=== PATIENT | female | born 1965 | race Two or more races ===

== ENCOUNTER 2016-07-18 19:24 | Emergency (ER) | payer MEDICAID ==
[~2016-07-18] VITALS: Ht 157.5 cm; Wt 71.7 kg
[2016-07-18 19:43] VITALS: BP 141/91
[2016-07-18 20:06] LABS: APPEARANCE,URINE SLIGHTLY CLOUDY; KETONES,URINE NEGATIVE (NEGATIVE); LEUKOCYTE ESTERASE ,URINE 3+ (NEGATIVE); NITRITE,URINE NEGATIVE (NEGATIVE); PH,URINE 6 (4.5-8.0); PROTEIN,URINE 2+ (NEGATIVE); UROBILINOGEN,URINE NORMAL MG/DL (0.0-1.0)
[2016-07-18 20:15] LABS: BACTERIA,URINE MODERATE /HPF; SQUAMOUS EPITHELIAL CELL,UR FEW /LPF (NONE/OCC); WBC,URINE TNTC /HPF (0 - 2)
[2016-07-18] MEDS ORDERED: BACTRIM DS TAB1 EAC1 ORAL (20:23)
[2016-07-18] MEDS ORDERED: Bactrim DS (160mg/800mg) tab ORAL ONE (20:30)
[2016-07-18 20:37] VITALS: BP 141/91
--- NOTE | 2016-07-18 21:11 | Emergency Room Report ---
History of Present Illness General Chief Complaint: Pain Source: Patient Present Illness HPI The patient is a 51-year-old female presenting with lower abdominal pain, dysuria, and fever which began 2 days prior. Abdominal pain as described as an 8/10 dull ache it does not radiate from the area. The patient does admit to increased urinary frequency. The patient denies any vaginal discharge and denies flank pain, hematuria, night sweats, rash, cough, diarrhea, constipation , nausea, vomiting Allergies: Coded Allergies: No Known Allergies (Unverified , 07/18/16) Patient History Past Medical History: see triage record Pertinent Family History: none Last Menstrual Period: 07/14/16 Now: No Reviewed Nursing Documentation: PMH: Agreed, PSxH: Agreed Nursing Documentation-PMH Past Medical History: No Stated History Review of Systems All Other Systems: negative except mentioned in HPI Physical Exam Vital Signs Date Time Temp Pulse Resp B/P Pulse Ox O2 Delivery O2 Flow Rate FiO2 07/18/16 19:34 97.7 74 15 141/91 96 Room Air Sp02 EP Interpretation: reviewed, normal General Appearance: no apparent distress, alert, GCS 15, non-toxic Head: normocephalic, atraumatic Eyes: bilateral eye PERRL, bilateral eye normal inspection Gastrointestinal: normal inspection, normal bowel sounds, soft, no mass, non- distended, no guarding, no rebound, tenderness - suprapubic Genitourinary: normal inspection, no CVA tenderness Musculoskeletal: back normal, gait/station normal, normal range of motion, non- tender Neurologic: alert, oriented x3, responsive, motor strength/tone normal, sensory intact, speech normal Psychiatric: judgement/insight normal, memory normal, mood/affect normal, no suicidal/homicidal ideation Skin: normal color, no rash, warm/dry, well hydrated Lymphatic: no adenopathy Medical Decision Making PA Attestation Dr. Bill is my supervising physician. Patient management was discussed with my supervising physician Diagnostic Impression: Primary Impression: Urinary tract infection ER Course The patient is a 51-year-old female presenting with lower abdominal pain, dysuria, and fever which began 2 days prior. Differential diagnosis considered but not limited to: UTI, vaginitis, pyelonephritis, Physical exam: Afebrile. No apparent distress Abdomen is soft. There is tenderness to palpation over suprapubic region only. Normal bowel sounds. Nondistended. No CVA tenderness Labs: UA shows WBC TNTC and many bacteria. No nitrites. neg preg. The patient is given Tylenol for pain Patient will be treated for urinary tract infection with Bactrim. ER precautions are given and the patient will follow up with primary care doctor Laboratory Tests Test 07/18/16 19:46 Urine Color Yellow Urine Appearance Slightly cloudy Urine pH 6 (4.5-8.0) Urine Specific [place] 1.005 (1.005-1.035) Urine Protein 2+ (NEGATIVE) H Urine Glucose (UA) Negative (NEGATIVE) Urine Ketones Negative (NEGATIVE) Urine Occult Blood 5+ (NEGATIVE) H Urine Nitrite Negative (NEGATIVE) Urine Bilirubin Negative (NEGATIVE) Urine Urobilinogen Normal MG/DL (0.0-1.0) Urine Leukocyte Esterase 3+ (NEGATIVE) H Urine RBC 10-15 /HPF (0 - 2) H Urine WBC Tntc /HPF (0 - 2) H Urine Squamous Epithelial Cells Few /LPF (NONE/OCC) Urine Bacteria Moderate /HPF (NONE) H Urine HCG, Qualitative Negative Lab Results Impression UA shows WBC TNTC and many bacteria. No nitrites. Last Vital Signs Date Time Temp Pulse Resp B/P Pulse Ox O2 Delivery O2 Flow Rate FiO2 07/18/16 20:37 97.7 79 15 141/91 96 Room Air Status: improved Disposition: HOME, SELF-CARE Condition: Improved Scripts Trimethoprim/Sulfamethoxazole 160/800* (BACTRIM DS TABLET*) 1 Each Tablet 1 TAB ORAL TWICE A DAY, #14 TAB Prov: MADHU TALAVERA 07/18/16 Patient Instructions: Urinary Tract Infection Additional Instructions: I discussed my findings with the patient. All questions and concerns have been answered. Treatment and medication compliance have been addressed. I advised the patient that they need to follow up with PMD in 3-5 days. Return to ED if symptoms worsen, new symptoms arise, or if needed for any reason. Patient verbalized understanding of discharge instructions. MADHU TALAVERA Jul 18, 2016 21:10
== END 2016-07-18 20:37 | disposition home or self-care (01) ==
LOC: EMR 20:20
DX: N39.0 Urinary tract infection, site not specified (principal); R10.30 Lower abdominal pain, unspecified; R30.0 Dysuria; R50.9 Fever, unspecified
CPT/HCPCS: 81003; 81025; 87086; 87181; 99283

== ENCOUNTER 2016-07-22 11:56 | Emergency (ER) | payer MEDICAID ==
[~2016-07-22] VITALS: Ht 157.5 cm; Wt 71.7 kg
[~2016-07-22 11:56] MED LIST: BACTRIM DS TAB1 EAC1 ORAL
[2016-07-22] MEDS ORDERED: Ciprofloxacin 500mg tab ORAL ONE (12:45)
[2016-07-22] MEDS ORDERED: CIPROFLOXACIN500 M2 ORAL (13:08)
[2016-07-22 13:41] LABS: APPEARANCE,URINE CLEAR; KETONES,URINE NEGATIVE (NEGATIVE); LEUKOCYTE ESTERASE ,URINE 2+ (NEGATIVE); NITRITE,URINE NEGATIVE (NEGATIVE); PH,URINE 6 (4.5-8.0); PROTEIN,URINE 1+ (NEGATIVE); UROBILINOGEN,URINE NORMAL MG/DL (0.0-1.0)
--- NOTE | 2016-07-22 13:53 | Emergency Room Report ---
History of Present Illness General Chief Complaint: Female Urogenital Problems Source: Patient Present Illness HPI The patient is a 51-year-old female presenting with lower abdominal pain, flank pain, and dysuria which began one week prior. Patient was seen in this emergency department and given a prescription for Bactrim. Microbiology reports shows that the bacteria and is resistant to this antibiotic. The patient states that she has been experiencing lower normal and bilateral flank pain for the past 2 days. The pain is described as a 10/10 dull ache to the mid lower abdomen and radiates to the right and left lower back. The patient admits to dysuria and increased urinary frequency. Patient denies hematuria or vaginal discharge. The patient also denies nausea, vomiting, fever, chills Allergies: Coded Allergies: No Known Allergies (Unverified , 07/18/16) Patient History Past Medical History: see triage record Pertinent Family History: none Last Menstrual Period: last week Now: No Reviewed Nursing Documentation: PMH: Agreed, PSxH: Agreed Nursing Documentation-PMH Past Medical History: No History, Except For Review of Systems All Other Systems: negative except mentioned in HPI Physical Exam Vital Signs Date Time Temp Pulse Resp B/P Pulse Ox O2 Delivery O2 Flow Rate FiO2 07/22/16 12:07 101.8 106 20 125/72 98 Room Air General Appearance: no apparent distress, alert, GCS 15, non-toxic Head: normocephalic, atraumatic Eyes: bilateral eye PERRL, bilateral eye normal inspection Respiratory: chest non-tender, lungs clear, normal breath sounds, speaking full sentences Cardiovascular #1: regular rate, rhythm, no edema Gastrointestinal: normal bowel sounds, soft, non-distended, no guarding, no rebound, tenderness - suprapubic Genitourinary: normal inspection, CVA tenderness (R), CVA tenderness (L) Musculoskeletal: back normal, gait/station normal, normal range of motion, non- tender Neurologic: alert, oriented x3, responsive, motor strength/tone normal, sensory intact, speech normal Psychiatric: judgement/insight normal, memory normal, mood/affect normal, no suicidal/homicidal ideation Skin: normal color, no rash, warm/dry, well hydrated Lymphatic: no adenopathy Medical Decision Making PA Attestation Dr. Pool is my supervising physician. Patient management was discussed with my supervising physician Diagnostic Impression: Primary Impression: Urinary tract infection ER Course The patient is a 51-year-old female presenting with lower abdominal pain, flank pain, and dysuria which began one week prior Differential diagnosis considered: Urinary tract infection, bacterial vaginosis , PID, pyelonephritis PE: The patient is febrile. No apparent distress. Abdomen is soft. Tenderness to palpation over suprapubic region. Normal bowel sounds. There is bilateral CVA tenderness Skin is warm and dry. Otherwise exam is unremarkable The patient was given Tylenol and ciprofloxacin in the emergency department. The patient had a urinalysis done 4 days prior with microbiology showing Escherichia coli that is resistant to Bactrim. His susceptible to ciprofloxacin the patient will be placed on this antibiotic and will follow up with primary care physician. ER precautions are given Last Vital Signs Date Time Temp Pulse Resp B/P Pulse Ox O2 Delivery O2 Flow Rate FiO2 07/22/16 12:07 101.8 106 20 125/72 98 Room Air Status: improved Disposition: HOME, SELF-CARE Condition: Improved Scripts Ciprofloxacin Hcl* (CIPROFLOXACIN HCL*) 500 Mg Tablet 500 MG ORAL EVERY 12 HOURS, #20 TAB 0 Refills Prov: MADHU TALAVERA 07/22/16 Referrals: NOT CHOSEN IPA/MD,REFERRING Patient Instructions: Urinary Tract Infection Additional Instructions: I discussed my findings with the patient. All questions and concerns have been answered. Treatment and medication compliance have been addressed. I advised the patient that they need to follow up with PMD in 3-5 days. Return to ED if symptoms worsen, new symptoms arise, or if needed for any reason. Patient verbalized understanding of discharge instructions. MADHU TALAVERA Jul 22, 2016 13:52
[2016-07-22 13:54] LABS: BACTERIA,URINE FEW /HPF; SQUAMOUS EPITHELIAL CELL,UR FEW /LPF (NONE/OCC)
[2016-07-22 15:25] VITALS: BP 121/65
[2016-07-22 15:30] VITALS: BP 121/65
== END 2016-07-22 15:30 | disposition home or self-care (01) ==
LOC: EMR 12:35
DX: N39.0 Urinary tract infection, site not specified (principal)
CPT/HCPCS: 81003; 87086; 87181; 99283

== ENCOUNTER 2017-09-21 16:54 | Emergency (ER) | payer MEDICAID, OTHER ==
[~2017-09-21] VITALS: Ht 157.5 cm; Wt 73.5 kg
[~2017-09-21 16:54] MED LIST changes: +CIPROFLOXACIN500 M2 ORAL
[2017-09-21] MEDS ORDERED: NKM (17:17)
[2017-09-21 17:21] VITALS: BP 141/76
[2017-09-21] MEDS ORDERED: Meclizine 25mg tab ORAL ONE (17:30)
[2017-09-21 18:01] LABS: APPEARANCE,URINE CLEAR; BILIRUBIN, URINE NEGATIVE (NEGATIVE); COLOR,URINE PALE YELLOW; GLUCOSE, URINE (UA) NEGATIVE (NEGATIVE); KETONES,URINE NEGATIVE (NEGATIVE); LEUKOCYTE ESTERASE ,URINE NEGATIVE (NEGATIVE); NITRITE,URINE NEGATIVE (NEGATIVE); PH,URINE 7 (4.5-8.0); PROTEIN,URINE NEGATIVE (NEGATIVE); UROBILINOGEN,URINE NORMAL MG/DL (0.0-1.0)
--- NOTE | 2017-09-21 18:04 | Emergency Room Report ---
History of Present Illness General Chief Complaint: Dizziness Source: Patient Present Illness HPI Patient is a 52-year-old female in after increased dizziness. The patient reports having increased spinning sensation. The patient woke up this morning with acute onset of symptoms. She reports having prior history of hypertension. She denies taking any medications.The patient denies any chest pain or shortness of breath.The patient was noted to have increased sensation of movement. She was having moderate headache. She denies any fever. She denies any vomiting or diarrhea.The patient reported he had not been taking any medications. Allergies: Coded Allergies: No Known Allergies (Unverified , 07/18/16) Patient History Past Medical History: see triage record Last Menstrual Period: 09/16/17 Reviewed Nursing Documentation: PMH: Agreed; PSxH: Agreed Nursing Documentation-PMH Hx Hypertension: Yes Review of Systems All Other Systems: negative except mentioned in HPI Physical Exam Vital Signs Date Time Temp Pulse Resp B/P (MAP) Pulse Ox O2 Delivery O2 Flow Rate FiO2 09/21/17 17:11 98.1 49 17 149/84 96 Room Air 98.1 General Appearance: well appearing, no apparent distress, alert, GCS 15, non- toxic Head: normocephalic, atraumatic ENT: hearing grossly normal, normal voice Neck: full range of motion, supple Respiratory: no respiratory distress, speaking full sentences Cardiovascular #1: regular rate, rhythm Gastrointestinal: normal inspection, normal bowel sounds, non tender, soft, no mass Musculoskeletal: no calf tenderness Neurologic: normal inspection, alert, oriented x3, responsive, 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 Differential diagnosis included was not limited to CVA, vertebrobasilar insufficiency, myocardial infarction, benign positional vertigo, labyrinthitis, aspirin overdose among others. The patient was noted to have abnormal neurologic exam initially. Patient was given meclizine by mouth. She was subsequently noted to have some improvement. CT imaging showed no evidence of acute hemorrhage or CVA. Patient was given aspirin by mouth. I EKG interpreted by me showed sinus bradycardia with a rate of 49 with prolonged QT interval there is some nonspecific T wave changes there were no evidence of acute ST changes.. Patient was noted to have inverted T- wave in lead 3 which is a normal variant.Patient was discussed with physician at [facility] for transfer Labs Test 09/21/17 17:45 White Blood Count 5.8 K/UL (4.8-10.8) Red Blood Count 4.00 M/UL (4.20-5.40) Hemoglobin 12.5 G/DL (12.0-16.0) Hematocrit 35.2 % (37.0-47.0) Mean Corpuscular Volume 88 FL (80-99) Mean Corpuscular Hemoglobin 31.2 PG (27.0-31.0) Mean Corpuscular Hemoglobin Concent 35.5 G/DL (32.0-36.0) Red Cell Distribution Width 11.4 % (11.6-14.8) Platelet Count 149 K/UL (150-450) Mean Platelet Volume 10.2 FL (6.5-10.1) Neutrophils (%) (Auto) 52.1 % (45.0-75.0) Lymphocytes (%) (Auto) 38.7 % (20.0-45.0) Monocytes (%) (Auto) 7.1 % (1.0-10.0) Eosinophils (%) (Auto) 1.2 % (0.0-3.0) Basophils (%) (Auto) 0.8 % (0.0-2.0) Prothrombin Time 10.1 SEC (9.30-11.50) Prothromb Time International Ratio 1.0 (0.9-1.1) Activated Partial Thromboplast Time 24 SEC (23-33) Urine Color Pale yellow Urine Appearance Clear Urine pH 7 (4.5-8.0) Urine Specific [place] 1.005 (1.005-1.035) Urine Protein Negative (NEGATIVE) Urine Glucose (UA) Negative (NEGATIVE) Urine Ketones Negative (NEGATIVE) Urine Occult Blood 1+ (NEGATIVE) Urine Nitrite Negative (NEGATIVE) Urine Bilirubin Negative (NEGATIVE) Urine Urobilinogen Normal MG/DL (0.0-1.0) Urine Leukocyte Esterase Negative (NEGATIVE) Urine RBC 2-4 /HPF (0 - 2) Urine WBC 0-2 /HPF (0 - 2) Urine Squamous Epithelial Cells Few /LPF (NONE/OCC) Urine Bacteria Few /HPF (NONE) Sodium Level 136 MMOL/L (136-145) Potassium Level 3.5 MMOL/L (3.5-5.1) Chloride Level 102 MMOL/L (98-107) Carbon Dioxide Level 27 MMOL/L (21-32) Anion Gap 7 mmol/L (5-15) Blood Urea Nitrogen 10 mg/dL (7-18) Creatinine 0.6 MG/DL (0.55-1.30) Estimat Glomerular Filtration Rate > 60 mL/min (>60) Glucose Level 96 MG/DL (74-106) Calcium Level 8.8 MG/DL (8.5-10.1) Total Bilirubin 0.4 MG/DL (0.2-1.0) Aspartate Amino Transf (AST/SGOT) 17 U/L (15-37) Alanine Aminotransferase (ALT/SGPT) 19 U/L (12-78) Alkaline Phosphatase 65 U/L (46-116) Troponin I 0.000 ng/mL (0.000-0.056) Total Protein 7.0 G/DL (6.4-8.2) Albumin 3.6 G/DL (3.4-5.0) Globulin 3.4 g/dL Albumin/Globulin Ratio 1.1 (1.0-2.7) Thyroid Stimulating Hormone (TSH) 1.767 uiU/mL (0.358-3.740) EKG Diagnostic Results Rate: bradycardiac ST Segments: no acute changes ASA given to the pt in ED: Yes Rhythm Strip Diag. Results EP Interpretation: yes Rhythm: no PVC's, no ectopy, other - sinus bradycardia Last Vital Signs Date Time Temp Pulse Resp B/P (MAP) Pulse Ox O2 Delivery O2 Flow Rate FiO2 09/21/17 17:11 98.1 49 17 149/84 96 Room Air 98.1 Status: improved Disposition: XFER SHT-TRM HOSP Condition: Serious Referrals: NOT CHOSEN ANETA/,REFERRING (PCP) Romeo Pool Sep 21, 2017 18:04
[2017-09-21 18:07] LABS: BASOPHILS % (AUTO) 0.8 % (0.0-2.0); EOSINOPHILS % (AUTO) 1.2 % (0.0-3.0); HEMATOCRIT 35.2 % (37.0-47.0); HEMOGLOBIN 12.5 G/DL (12.0-16.0); LYMPHOCYTES % (AUTO) 38.7 % (20.0-45.0); MEAN CORPUSCULAR VOLUME 88 FL (80-99); MONOCYTES % (AUTO) 7.1 % (1.0-10.0); NEUTROPHILS % (AUTO) 52.1 % (45.0-75.0); PLATELET COUNT 149 K/UL (150-450); RED CELL DISTRIBUTION WIDTH 11.4 % (11.6-14.8); WHITE BLOOD COUNT 5.8 K/UL (4.8-10.8)
[2017-09-21 18:19] LABS: ANION GAP 7 mmol/L (5-15); BLOOD UREA NITROGEN 10 mg/dL (7-18); CALCIUM 8.8 MG/DL (8.5-10.1); CARBON DIOXIDE 27 MMOL/L (21-32); CHLORIDE 102 MMOL/L (98-107); CREATININE 0.6 MG/DL (0.55-1.30); POTASSIUM 3.5 MMOL/L (3.5-5.1); SODIUM 136 MMOL/L (136-145)
[2017-09-21 18:31] LABS: ALANINE AMINOTRANSFERASE 19 U/L (12-78); ALBUMIN 3.6 G/DL (3.4-5.0); ALBUMIN/GLOBULIN RATIO 1.1 (1.0-2.7); ALKALINE PHOSPHATASE 65 U/L (46-116); ASPARTATE AMINO TRANSFERASE 17 U/L (15-37); BILIRUBIN,TOTAL 0.4 MG/DL (0.2-1.0)
[2017-09-21] MEDS ORDERED: Aspirin Baby 81mg ORAL ONE (19:00)
[2017-09-21 19:31] VITALS: BP 164/93
[2017-09-21 20:11] VITALS: BP 172/78
[2017-09-21 21:52] VITALS: BP 120/100
[2017-09-21 23:56] VITALS: BP 131/64
--- NOTE | 2017-09-22 08:47 | Diagnostic Imaging Report ---
Indication: Dizziness and right-sided weakness Technique: Continuous helical CT scanning of the head was performed without intravenous contrast material. Axial and coronal 5 mm sections were generated. Radiation dose was minimized using automated exposure control Dose: Total Dose Length Product - DLP 1305.[address] Dose Index - CTDIvol(s) 70.38 mGy. Comparison: none Findings: The ventricular system is normal in size and configuration. There is no shift of midline structures. No abnormal extra-axial fluid collections are noted. There is no evidence of intracerebral bleeding. No other abnormal high or low density areas are noted within the brain. Impression: Normal CT scan of the head without contrast material. This agrees with the preliminary interpretation provided overnight by [facility]erad[facility] service. The CT scanner at [facility] is accredited by the [employer] and the scans are performed using protocols designed to limit radiation exposure to as low as reasonably achievable to attain images of sufficient resolution adequate for diagnostic evaluation.
--- NOTE | 2017-09-22 21:22 | Cardiology Report ---
APPROVED REPORT EKG Measurement Heart [id number] Sinus bradycardia Otherwise normal ECG
--- NOTE | 2017-09-22 21:42 | Cardiology Report ---
APPROVED REPORT EKG Measurement Heart [id number] Sinus bradycardia Nonspecific T wave abnormality Prolonged QT Abnormal ECG
== END 2017-09-21 23:56 | disposition short-term general hospital (02) ==
LOC: EMR 17:59
DX: G45.9 Transient cerebral ischemic attack, unspecified (principal); R00.1 Bradycardia, unspecified; I45.81 Long QT syndrome; I10 Essential (primary) hypertension
CPT/HCPCS: 36415; 70450; 80053; 81001; 82962; 84443; 84484; 85025; 85610; 85730; 93005; 99285

== ENCOUNTER 2019-04-20 11:21 | Emergency (ER) | payer OTHER ==
[~2019-04-20] VITALS: Ht 160 cm; Wt 75.7 kg
[~2019-04-20 11:21] MED LIST changes: +NKM
--- NOTE | 2019-04-20 11:43 | NUR ---
ED Nurse Note: Pt. walked in ED from home c/o generalized body pain. Pt aox4, no acute resp distress noted at this time.
[2019-04-20 12:04] VITALS: BP 132/63
--- NOTE | 2019-04-20 12:05 | NUR ---
ED Nurse Note: ERMD at bedside
--- NOTE | 2019-04-20 12:08 | Emergency Room Report ---
History of Present Illness General Chief Complaint: Pain Source: Patient Present Illness HPI Patient is a 53-year-old female presents after increased left arm and left leg pain. Patient reports having pain for several weeks. This had not changed in intensity. She had recently been seen by her physician and given prescription for NSAIDs with out any improvement. She reports having increased pain with movement of her neck. Denies any recent trauma. No fever. She had not been having any difficulty with walking. She had previous CT of her head which was unremarkable. She had previously been noted to have a TIA. Allergies: Coded Allergies: No Known Allergies (Unverified , 07/18/16) Patient History Past Medical History: see triage record Now: No Reviewed Nursing Documentation: PMH: Agreed; PSxH: Agreed Nursing Documentation-PMH Past Medical History: No History, Except For Hx Cardiac Problems: Yes - [place] 2000. Hypercholesterolemia. Hx Hypertension: Yes Review of Systems All Other Systems: negative except mentioned in HPI Physical Exam Vital Signs Date Time Temp Pulse Resp B/P (MAP) Pulse Ox O2 Delivery O2 Flow Rate FiO2 04/20/19 11:38 98.4 55 17 132/63 (86) 99 Room Air General Appearance: well appearing, no apparent distress, alert, GCS 15 Head: normocephalic, atraumatic ENT: hearing grossly normal, normal voice Neck: supple, limited range of motion Respiratory: lungs clear, normal breath sounds, no respiratory distress, speaking full sentences Cardiovascular #1: normal inspection, normal peripheral pulses, regular rate, rhythm Musculoskeletal: pelvis stable Neurologic: normal inspection, alert, oriented x3, responsive, 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 Differential diagnosis include was not limited to cervical radiculopathy, neuropathy among others. Patient has a benign exam and does not appear to require any imaging or laboratory testing at this time. Patient's history is and exam is consistent with a cervical radiculopathy. Patient's pain does not appear to be acute. Patient was advised to follow-up with her primary care physician for neurology referral and physical therapy. Patient was advised to return if worse. She is given prescription for gabapentin. patient is advised to follow up with primary care doctor in 1-2 days. Patient is advised to return if any worsening condition or if any changes in status that are concerning. This report is dictated with [employer] packaging clerk software which may occasionally lead to discrepancies related to use of this software. Last Vital Signs Date Time Temp Pulse Resp B/P (MAP) Pulse Ox O2 Delivery O2 Flow Rate FiO2 04/20/19 12:04 98.4 17 132/63 99 Room Air 04/20/19 11:38 55 Status: improved Disposition: HOME, SELF-CARE Condition: Stable Scripts Gabapentin* (GABAPENTIN*) 300 Mg Capsule 300 MG ORAL THREE TIMES A DAY, #30 CAP 0 Refills Prov: Romeo Pool MD 04/20/19 Romeo Pool MD Apr 20, 2019 12:08
[2019-04-20] MEDS ORDERED: GABAPENTIN300 MG ORAL ×3 (12:10→12:14)
--- NOTE | 2019-04-20 12:15 | NUR ---
ER DISCHARGE NOTE: Patient is cleared to be discharged per ERMD, pt is aox4, on room air, with stable vital signs. pt was given dc and prescription instructions, pt was able to verbalize understanding, pt id band removed without complications. pt is able to ambulate with steady gait. pt took all belongings.
== END 2019-04-20 12:15 | disposition home or self-care (01) ==
LOC: EMR 12:00
DX: M54.10 Radiculopathy, site unspecified (principal); E78.00 Pure hypercholesterolemia, unspecified; I25.2 Old myocardial infarction; I10 Essential (primary) hypertension; Z86.73 Personal history of transient ischemic attack (TIA), and cerebral infarction without residual deficits
CPT/HCPCS: 99282

== ENCOUNTER 2020-03-09 23:05 | Emergency (ER) | payer MEDICAID, OTHER ==
[~2020-03-09] VITALS: Ht 157.5 cm; Wt 72.6 kg
[~2020-03-09 23:05] MED LIST changes: +GABAPENTIN300 MG ORAL
[2020-03-09 23:16] VITALS: BP 143/74
[2020-03-09] MEDS ORDERED: Lidocaine 1% MPF 10mg/ml 5ml INJ ONE (23:45)
[2020-03-10 00:02] LABS: APPEARANCE,URINE CLEAR; BILIRUBIN, URINE NEGATIVE (NEGATIVE); COLOR,URINE PALE YELLOW; GLUCOSE, URINE (UA) NEGATIVE (NEGATIVE); KETONES,URINE NEGATIVE (NEGATIVE); LEUKOCYTE ESTERASE ,URINE 1+ (NEGATIVE); NITRITE,URINE NEGATIVE (NEGATIVE); PH,URINE 8 (4.5-8.0); PROTEIN,URINE NEGATIVE (NEGATIVE); UROBILINOGEN,URINE NORMAL MG/DL (0.0-1.0)
[2020-03-10] MEDS ORDERED: NITROFURANTOIN100 M2 ORAL (00:22)
[2020-03-10] MEDS ORDERED: PHENAZOPYRIDIN100 MG ORAL (00:22)
[2020-03-10] MEDS ORDERED: IBUPROFEN600 M1 ORAL (00:22)
[2020-03-10] MEDS ORDERED: MONISTAT 324 GM VG (00:25)
[2020-03-10 00:28] VITALS: BP 135/72
--- NOTE | 2020-03-10 04:02 | Emergency Room Report ---
History of Present Illness General Chief Complaint: Female Urogenital Problems Source: Patient Present Illness HPI 54-year-old female with no prior medical history presents with dysuria. She states that her urine is malodorous. Denies hematuria, fever, abdominal pain, nausea, vomiting, diarrhea, chest pain, shortness of breath, rash or other symptoms. She states this feels similar to previous time when she had a urinary tract infection. She is requesting antibiotics "a shot". She denies history of sexually transmitted infection or kidney stone The patient's symptoms were gradual onset, severity was moderate, duration since 30 days. Quality: Burning Past medical history: Previous UTI Past surgical history: Denies Smoking: Denies Alcohol use: Denies Drug use: Denies Review of systems: CONST: No fevers or chills, No night sweats PULMONARY: No productive cough, No shortness of breath CARDIAC: No chest pain, No palpitations GI: No vomiting, No diarrhea , No melena_or_BRBPR : No dysuria, No hematuria, No discharge NEURO: No new_focal_weakness_or_numbness, No confusion, No vision changes 14 point Review of Systems is otherwise negative except per HPI Physical Exam: GENERAL: Awake_alert_ nontoxic, no acute distress Spo2 98% on RA -normal EYES: Extraocular muscles are intact. Conjunctivae clear. Lids without swelling ENT: External nose and ear normal_in_appearance. Oropharynx clear. Head_atraumatic, Moist_oral_mucosa NECK: No JVD. No meningismus. No thyromegaly. Supple. Trachea midline RESP: Normal respiratory effort. Symmetric rise. No stridor. Clear_to_auscultation_No_rales_No_wheezes CARDIAC: Regular rate and regular rhytm. No_significant pedal edema. ABDOMEN: Soft. Nondistended. Nontender_No_rebound_or_guarding. MSK: Normal muscle tone, without rigidity. Extremities without asymmetric deformity or swelling. SKIN: Warm and dry. No visible cyanosis or pallor NEUROLOGIC: Alert, oriented x3. Motor_and_sensation_grossly_intact. No truncal ataxia. Gait_normal Psych: Normal mood and affect, normal judgment and insight - COORDINATION OF CARE Case was discussed with: Patient Any labs and imaging that were ordered were interpreted as part of the medical decision making: Medical Decision Making/Plan: Differential diagnosis includes cystitis vs vaginitis, doubt cholecystitis, choledocholithiasis, hepatitis, small bowel obstruction, volvulus, AAA, pancreatitis, atypical appendicitis, gastroparesis, gastritis, peptic ulcer disease, among others. Patient is well appearing with stable vital signs. Abdominal exam is non peritoneal with no guarding or rebound. No CVA tenderness to palpation. Urinalysis is overall unimpressive, however has small amount of bacteria and leukocytes. No hematuria. Patient is insisting on being treated for UTI therefore antibiotics will be prescribed. (Macrobid for 5 days). She is also requesting "a shot", therefore Rocephin was given intramuscularly in the ED. She is also requesting monistat. The patient denies any bloody stool and has no pain out of proportion to exam, and no significant risk factors for mesenteric ischemia such as atrial fibrillation or severe PAD/PVD (peripheral arterial / vascular disease), thus definitive workup to rule out mesenteric ischemia was not pursued. Patient is afebrile, without any significant tenderness in the RUQ, and a negative Hudson sign. The patients presentation does not appear to be consistent with acute cholecystitis and thus definitive imaging to rule it out was not pursued. The patient has no significant risk factors for AAA (abdominal aortic aneurysm) such as hypertension, connective tissue disorder, or 1st degree relative with AAA. the patient has normal dorsalis pedis pulses, no radiation of pain to the back, and no pulsatile mass felt on exam. The patients profile was overall low risk for AAA and definitive workup was not pursued. 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 Hypercholesterolemia. Hx Hypertension: Yes Hx Diabetes: Yes Physical Exam Vital Signs Date Time Temp Pulse Resp B/P (MAP) Pulse Ox O2 Delivery O2 Flow Rate FiO2 03/09/20 23:06 97.7 81 21 143/74 (97) 98 Room Air Sp02 EP Interpretation: reviewed, normal Medical Decision Making Diagnostic Impression: Primary Impression: Urinary tract infection Last Vital Signs Date Time Temp Pulse Resp B/P (MAP) Pulse Ox O2 Delivery O2 Flow Rate FiO2 03/10/20 00:28 97.7 75 16 135/72 98 Room Air Disposition: HOME, SELF-CARE Admit Decision Time: 00:00 Condition: Stable Scripts Miconazole Nitrate (MONISTAT 3) 24 Gm Cmb.pf.crm 24 GM VG NEEDED for 1 Day, #24 GM Prov: Zoë Chavez D.O. 03/10/20 Ibuprofen* (MOTRIN*) 600 Mg Tablet 600 MG ORAL FOUR TIMES A DAY, #30 TAB 0 Refills Prov: Zoë Chavez D.O. 03/10/20 Phenazopyridine Hcl* (PYRIDIUM*) 100 Mg Tablet 100 MG ORAL THREE TIMES A DAY for 2 Days, #6 TAB Prov: Zoë Chavez D.O. 03/10/20 Nitrofurantoin Monohyd/M-Cryst* (MACROBID 100 MG*) 100 Mg Capsule 100 MG ORAL EVERY 12 HOURS for 5 Days, #10 CAP Prov: Zoë Chavez D.O. 03/10/20 Referrals: [facility] Patient Instructions: Urinary Tract Infection Additional Instructions: Instructions for patient/senior engineering associate: Follow up with your physician in 1-2 days. Follow-up with your doctor sooner if your condition requires a more timely clinical reevaluation. Return to the emergency department immediately if you feel that your condition is worsening or if you have any new or concerning symptoms. Review your discharge instructions and take any prescriptions given as instructed. [facility] PROVIDES FREE OR LOW-COST HEALTH SERVICES TO PEOPLE WHO CAN SHOW PROOF THAT THEY LIVE IN [facility]. TO FIND MORE CLINICS PARTNERED WITH [facility] TO PROVIDE SERVICE, PLEASE CALL . Zoë Chavez D.O. Mar 10, 2020 04:02
== END 2020-03-10 00:28 | disposition home or self-care (01) ==
LOC: EMR 23:45
DX: N39.0 Urinary tract infection, site not specified (principal); I25.2 Old myocardial infarction; E78.00 Pure hypercholesterolemia, unspecified; E11.9 Type 2 diabetes mellitus without complications; I10 Essential (primary) hypertension
CPT/HCPCS: 81001; 96372; 96374; J0696; Z7502; 99284

== ENCOUNTER 2020-07-26 14:27 | Emergency (ER) | payer MEDICAID ==
[~2020-07-26] VITALS: Ht 157.5 cm; Wt 72.6 kg
[~2020-07-26 14:27] MED LIST changes: +IBUPROFEN600 M1 ORAL; +MONISTAT 324 GM VG; +NITROFURANTOIN100 M2 ORAL; +PHENAZOPYRIDIN100 MG ORAL
--- NOTE | 2020-07-26 15:02 | Emergency Room Report ---
History of Present Illness General Chief Complaint: Palpitations Source: Patient Present Illness HPI 55 year Old female with history of frequent urinary tract infections here with palpitations for 2 days. Patient says that she has been experiencing palpitations on and off for many months and is followed up with a morgue keeper and "they are going to give me a monitor of some kind." Patient says that for the past 2 days she has been experiencing these palpitations on and off without any known provocation. Says that they come and go on their own. Denies headache, vision changes, fevers, chills, chest pain, cough, diaphoresis, back pain, abdominal pain, shortness of breath, nausea, vomiting, diarrhea, dysuria. She says that she has felt this before when she has been diagnosed with urinary tract infections. 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 Past Medical History: No History, Except For Hx Cardiac Problems: Yes - [place] 2000. Hypercholesterolemia. Hx Hypertension: Yes Hx Diabetes: Yes Review of Systems All Other Systems: negative except mentioned in HPI Physical Exam Vital Signs Date Time Temp Pulse Resp B/P (MAP) Pulse Ox O2 Delivery O2 Flow Rate FiO2 07/26/20 14:40 98.8 63 15 143/83 (103) 97 Room Air Sp02 EP Interpretation: reviewed, normal General Appearance: no apparent distress, alert, non-toxic Head: normocephalic, atraumatic Eyes: bilateral eye normal inspection, bilateral eye PERRL ENT: hearing grossly normal, normal pharynx, no angioedema, normal voice Neck: full range of motion, supple/symm/no masses Respiratory: chest non-tender, lungs clear, normal breath sounds, speaking full sentences Cardiovascular #1: regular rate, rhythm, no edema Cardiovascular #2: 2+ carotid (R), 2+ carotid (L), 2+ radial (R), 2+ radial (L), 2+ dorsalis pedis (R), 2+ dorsalis pedis (L) Gastrointestinal: normal bowel sounds, non tender, soft, non-distended, no guarding, no rebound Rectal: deferred Genitourinary: normal inspection, no CVA tenderness Musculoskeletal: back normal, normal range of motion, gait/station normal, non- tender Neurologic: alert, motor strength/tone normal, oriented x3, sensory intact, responsive, speech normal Psychiatric: judgement/insight normal, memory normal, mood/affect normal, no suicidal/homicidal ideation Lymphatic: no adenopathy Medical Decision Making Diagnostic Impression: Primary Impression: Palpitations ER Course EKG: NSR, no ischemia, intervals WNL. No ectopy. Rate 61 bpm Rhythm strip: patient monitored for arrhythmias - no malignant dysrhythmias, runs of PVCs, nor pauses noted CXR: No infiltrate/effusion. Mediastinum within normal limits. No c onsolidations. No free air under the diaphragm. No bony abnormalities Laboratory Tests Test 07/26/20 15:00 White Blood Count 7.9 K/UL (4.8-10.8) Red Blood Count 4.37 M/UL (4.20-5.40) Hemoglobin 13.5 G/DL (12.0-16.0) Hematocrit 39.7 % (37.0-47.0) Mean Corpuscular Volume 91 FL (80-99) Mean Corpuscular Hemoglobin 30.9 PG (27.0-31.0) Mean Corpuscular Hemoglobin Concent 34.1 G/DL (32.0-36.0) Red Cell Distribution Width 13.2 % (11.6-14.8) Platelet Count 169 K/UL (150-450) Mean Platelet Volume 9.9 FL (6.5-10.1) Neutrophils (%) (Auto) 69.8 % (45.0-75.0) Lymphocytes (%) (Auto) 22.3 % (20.0-45.0) Monocytes (%) (Auto) 6.0 % (1.0-10.0) Eosinophils (%) (Auto) 1.1 % (0.0-3.0) Basophils (%) (Auto) 0.9 % (0.0-2.0) Urine Color Pale yellow Urine Appearance Clear Urine pH 7 (4.5-8.0) Urine Specific [place] 1.005 (1.005-1.035) Urine Protein Negative (NEGATIVE) Urine Glucose (UA) Negative (NEGATIVE) Urine Ketones Negative (NEGATIVE) Urine Blood Negative (NEGATIVE) Urine Nitrite Negative (NEGATIVE) Urine Bilirubin Negative (NEGATIVE) Urine Urobilinogen Normal MG/DL (0.0-1.0) Urine Leukocyte Esterase 1+ (NEGATIVE) H Urine RBC 0 /HPF (0 - 2) Urine WBC 0-2 /HPF (0 - 2) Urine Squamous Epithelial Cells Occasional /LPF Urine Bacteria Occasional /HPF (NONE) Sodium Level 143 MMOL/L (136-145) Potassium Level 3.6 MMOL/L (3.5-5.1) Chloride Level 106 MMOL/L (98-107) Carbon Dioxide Level 27 MMOL/L (21-32) Anion Gap 10 mmol/L (5-15) Blood Urea Nitrogen 16 mg/dL (7-18) Creatinine 0.8 MG/DL (0.55-1.30) Estimated Glomerular Filtration Rate > 60 mL/min (>60) Glucose Level 121 MG/DL (74-106) H Calcium Level 8.7 MG/DL (8.5-10.1) Total Bilirubin 0.6 MG/DL (0.2-1.0) Aspartate Amino Transferase (AST) 16 U/L (15-37) Alanine Aminotransferase (ALT) 26 U/L (12-78) Alkaline Phosphatase 100 U/L (46-116) Troponin I 0.000 ng/mL (0.000-0.056) Total Protein 7.4 G/DL (6.4-8.2) Albumin 3.7 G/DL (3.4-5.0) Globulin 3.7 g/dL Albumin/Globulin Ratio 1.0 (1.0-2.7) Urine Opiates Screen Negative (NEGATIVE) Urine Barbiturates Screen Negative (NEGATIVE) Phencyclidine (PCP) Screen Negative (NEGATIVE) Urine Amphetamines Screen Negative (NEGATIVE) Urine Benzodiazepines Screen Negative (NEGATIVE) Urine Cocaine Screen Negative (NEGATIVE) Urine Marijuana (THC) Screen Negative (NEGATIVE) Serum Alcohol < 3 mg/dL 55-year-old female here with palpitations on and off for several days. Patient says that she has been having symptoms for many months. She has an appoint with her morgue keeper coming up in a few days. She did not have any episodes of palpitations in the emergency department and she was observed for over 2 hours. EKG unremarkable. CBC, CMP, troponin, urine drug screen, ethanol level all normal. Patient was told to return with any worsening symptoms and follow-up with her morgue keeper. She expressed understanding and was discharged. Last Vital Signs Date Time Temp Pulse Resp B/P (MAP) Pulse Ox O2 Delivery O2 Flow Rate FiO2 07/26/20 14:40 98.8 63 15 143/83 (103) 97 Room Air Diego Gonzalez M.D. Jul 26, 2020 15:02
[2020-07-26 15:07] VITALS: BP 115/62
[2020-07-26 15:12] LABS: APPEARANCE,URINE CLEAR; BILIRUBIN, URINE NEGATIVE (NEGATIVE); COLOR,URINE PALE YELLOW; GLUCOSE, URINE (UA) NEGATIVE (NEGATIVE); KETONES,URINE NEGATIVE (NEGATIVE); LEUKOCYTE ESTERASE ,URINE 1+ (NEGATIVE); NITRITE,URINE NEGATIVE (NEGATIVE); PH,URINE 7 (4.5-8.0); PROTEIN,URINE NEGATIVE (NEGATIVE); UROBILINOGEN,URINE NORMAL MG/DL (0.0-1.0)
[2020-07-26 15:17] LABS: BASOPHILS % (AUTO) 0.9 % (0.0-2.0); EOSINOPHILS % (AUTO) 1.1 % (0.0-3.0); HEMATOCRIT 39.7 % (37.0-47.0); HEMOGLOBIN 13.5 G/DL (12.0-16.0); LYMPHOCYTES % (AUTO) 22.3 % (20.0-45.0); MEAN CORPUSCULAR VOLUME 91 FL (80-99); NEUTROPHILS % (AUTO) 69.8 % (45.0-75.0); PLATELET COUNT 169 K/UL (150-450); RED BLOOD COUNT 4.37 M/UL (4.20-5.40); RED CELL DISTRIBUTION WIDTH 13.2 % (11.6-14.8); WHITE BLOOD COUNT 7.9 K/UL (4.8-10.8)
[2020-07-26 15:24] LABS: ANION GAP 10 mmol/L (5-15); BLOOD UREA NITROGEN 16 mg/dL (7-18); CALCIUM 8.7 MG/DL (8.5-10.1); CARBON DIOXIDE 27 MMOL/L (21-32); CHLORIDE 106 MMOL/L (98-107); CREATININE 0.8 MG/DL (0.55-1.30); POTASSIUM 3.6 MMOL/L (3.5-5.1); SODIUM 143 MMOL/L (136-145)
[2020-07-26 15:29] LABS: ALANINE AMINOTRANSFERASE 26 U/L (12-78); ALBUMIN 3.7 G/DL (3.4-5.0); ALKALINE PHOSPHATASE 100 U/L (46-116); ASPARTATE AMINO TRANSFERASE 16 U/L (15-37); BILIRUBIN,TOTAL 0.6 MG/DL (0.2-1.0)
--- NOTE | 2020-07-26 16:02 | Diagnostic Imaging Report ---
Indication: Chest pain Technique: One view of the chest Comparison: none Findings: Lungs and pleural spaces are clear. Heart size is normal. Impression: No acute process
[2020-07-26 16:45] VITALS: BP 126/61
== END 2020-07-26 16:45 | disposition home or self-care (01) ==
LOC: EMR 15:05
DX: R00.2 Palpitations (principal); I25.2 Old myocardial infarction; E78.00 Pure hypercholesterolemia, unspecified; I10 Essential (primary) hypertension; E11.9 Type 2 diabetes mellitus without complications
CPT/HCPCS: 36415; 71045; 80053; 80307; 81003; 84484; 85025; 93005; G0480; Z7502; 99284